=== PATIENT | male | born 1945 | race Caucasian/White ===

== ENCOUNTER 2017-01-12 20:01 | Emergency (ER) | payer OTHER ==
[~2017-01-12] VITALS: Ht 165.1 cm; Wt 98.8 kg
[~2017-01-12 20:01] MED LIST: ATORVASTATIN CA80 MG PO; AVAPRO150 MG PO; LO-DOSE ASPIRIN81 M1 PO; METOPROLOL SUCC50 MG PO; PLAVIX75 MG PO; SOTALOL160 MG PO; VITAMIN D31000 UNIT PO
[2017-01-12 20:04] VITALS: BP 126/72
== END 2017-01-12 20:38 | disposition left against medical advice (07) ==
LOC: EME 20:01
DX: S09.93XA Unspecified injury of face, initial encounter (principal); W18.30XA Fall on same level, unspecified, initial encounter; Y92.511 Restaurant or cafe as the place of occurrence of the external cause; Z53.21 Procedure and treatment not carried out due to patient leaving prior to being seen by health care provider